=== PATIENT | female | born 1965 | race Caucasian/White ===

== ENCOUNTER 2016-11-27 15:41 | Inpatient (IN) | payer OTHER ==
[~2016-11-27] VITALS: Ht 167.6 cm; Wt 86.9 kg
[2016-11-27 16:36] LABS: HEMATOCRIT 35.4 % (36.0-46.0); MCH 28.5 PG (29.0-34.0); MCHC 34.7 G/DL (30.0-36.0); MCV 81.9 FL (83-99); MEAN PLAT.VOLUME 10.1 uM^3 (9.5-12.4); PLATELET COUNT 243 K/uL (156-360); RBC DIS.WIDTH-CV 13.6 % (11.8-14.6); RBC DIS.WIDTH-SD 40.9 % (39-53); RED BLOOD COUNT 4.32 M/uL (3.80-5.20); WHITE BLOOD COUNT 16.9 K/uL (4.1-10.2)
[2016-11-27 16:46] LABS: CHLORIDE 99 mEq/L (99-109); POTASSIUM 2.7 mEq/L (3.7-5.4); SODIUM 136 mEq/L (136-147)
[2016-11-27 16:47] LABS: GLUCOSE 114 mg/dL (70-99)
[2016-11-27 16:49] LABS: ANION GAP 18 MEQ/L (2-14)
[2016-11-27 16:52] LABS: GFR ESTIMATE (CALCULATED) 9 mL/min/; UREA NITROGEN (BUN) 78 mg/dL (9-23)
[2016-11-27 16:54] LABS: TROP-I INTERPRETATION NEGATIVE; TROPONIN-I < 0.01 ng/mL (0.0-0.30)
[2016-11-27] MEDS ORDERED: ALLEGRA-D 241 TABLET PO (17:21)
[2016-11-27] MEDS ORDERED: DELTASONE20 M1 PO (17:21)
[2016-11-27] MEDS ORDERED: MAALOX ADVANCE355 ML PO (17:22)
[2016-11-27] MEDS ORDERED: NASACORT10.8 ML BOTH NARES (17:22)
[2016-11-27 18:06] LABS: MAGNESIUM 2.1 mg/dL (1.3-2.7)
[2016-11-27 18:23] LABS: BASE EXCESS -4.4 mEq/L (-3 to +3); BICARBONATE 17.5 mEq/L (22-26); CARBOXY HGB 1.1 % (0-5); COMMENTS - BLOOD GASES A+C+; DEVICE NC; METHEMOGLOBIN 1.2 % (0-1.5); O2 FLOW 2 L/MIN; PCO2 23 mm Hg (35-45); PO2 68 mm Hg (80-100); SITE LR; TOTAL RESP RATE 20 resp/min; pH 7.49 (7.35-7.45)
[2016-11-27 19:08] LABS: ERTH.SED.RATE 94 MM/HR (0-30)
[2016-11-27 19:35] VITALS: BP 170/80
[2016-11-27 20:00] LABS: C-REACTIVE PROTEIN > 240.0 MG/L (0-10)
[2016-11-27 20:26] LABS: ALKALINE PHOSPHATASE 164 IU/L (3-129); ANION GAP 13 MEQ/L (2-14); CHLORIDE 99 MEQ/L (99-109); GFR ESTIMATE (CALCULATED) 10 mL/min/; GLUCOSE 125 mg/dL (70-99); POTASSIUM 2.7 MEQ/L (3.7-5.4); SAMPLE HEMOLYSIS CHECK 0; SAMPLE ICTERIC CHECK 0; SAMPLE LIPEMIA CHECK 0; SODIUM 132 MEQ/L (136-147); TOTAL BILIRUBIN 0.9 MG/DL (0.0-1.0); UREA NITROGEN (BUN) 75 mg/dL (9-23)
[2016-11-27 22:45] VITALS: BP 140/76
[2016-11-28 02:49] LABS: CHLORIDE 108 mEq/L (99-109); SODIUM 137 mEq/L (136-147)
[2016-11-28 02:52] LABS: GLUCOSE 125 mg/dL (70-99)
[2016-11-28 02:53] LABS: ANION GAP 12 MEQ/L (2-14)
[2016-11-28 02:55] LABS: ALKALINE PHOSPHATASE 182 IU/L (3-129); GFR ESTIMATE (CALCULATED) 12 mL/min/
[2016-11-28 02:56] LABS: UREA NITROGEN (BUN) 69 mg/dL (9-23)
[2016-11-28 02:59] LABS: POTASSIUM 3.5 mEq/L (3.7-5.4)
[2016-11-28 03:55] VITALS: BP 144/76
[2016-11-28 07:38] VITALS: BP 147/72
[2016-11-28 11:47] VITALS: BP 142/70
[2016-11-28 12:42] LABS: ADD MIUA? YES; BILIRUBIN NEGATIVE; BLOOD SMALL; COLOR YELLOW ((YELLOW)); GLUCOSE (STRIP) NEGATIVE; KETONES NEGATIVE; LEUKOCYTES TRACE; NITRITE NEGATIVE; PROTEIN (STRIP) NEGATIVE; UROBILINOGEN 0.2 MG/DL (0.2-1.0)
[2016-11-28 13:00] LABS: BACTERIA RARE /HPF; CELLULAR CASTS 0-5 /LPF; EPITHELIAL CELLS 1+ /HPF; MUCUS TRACE /LPF; RED BLOOD CELLS 0-5 /HPF (0-5); UCUL ADDED? NO; WHITE BLOOD CELLS CLUMP RARE /HPF (0-5)
[2016-11-28 13:15] LABS: ANION GAP 13 MEQ/L (2-14); CHLORIDE 107 MEQ/L (99-109); POTASSIUM 3.6 MEQ/L (3.7-5.4); SAMPLE HEMOLYSIS CHECK 0; SAMPLE ICTERIC CHECK 0; SAMPLE LIPEMIA CHECK 0; SODIUM 138 MEQ/L (136-147); UREA NITROGEN (BUN) 56 mg/dL (9-23)
[2016-11-28 13:16] LABS: GFR ESTIMATE (CALCULATED) 16 mL/min/; GLUCOSE 93 mg/dL (70-99)
[2016-11-28 15:40] VITALS: BP 146/73
[2016-11-28 18:54] VITALS: BP 154/74
[2016-11-28 22:37] VITALS: BP 153/82
[2016-11-29 03:50] VITALS: BP 180/81
[2016-11-29 07:02] LABS: HEMATOCRIT 29.8 % (36.0-46.0); MCH 28.4 PG (29.0-34.0); MCHC 33.6 G/DL (30.0-36.0); MCV 84.7 FL (83-99); MEAN PLAT.VOLUME 10.2 uM^3 (9.5-12.4); PLATELET COUNT 184 K/uL (156-360); RBC DIS.WIDTH-CV 14.2 % (11.8-14.6); RBC DIS.WIDTH-SD 43.9 % (39-53); RED BLOOD COUNT 3.52 M/uL (3.80-5.20); WHITE BLOOD COUNT 9.6 K/uL (4.1-10.2)
[2016-11-29 07:03] VITALS: BP 153/72
[2016-11-29 07:15] LABS: ALKALINE PHOSPHATASE 163 IU/L (3-129); ANION GAP 10 MEQ/L (2-14); CHLORIDE 109 MEQ/L (99-109); DIRECT BILIRUBIN 0.3 mg/dL (0.0-0.3); GFR ESTIMATE (CALCULATED) 22 mL/min/; GLUCOSE 86 mg/dL (70-99); POTASSIUM 3.7 MEQ/L (3.7-5.4); SAMPLE HEMOLYSIS CHECK 0; SAMPLE ICTERIC CHECK 0; SAMPLE LIPEMIA CHECK 0; SODIUM 141 MEQ/L (136-147); UREA NITROGEN (BUN) 42 mg/dL (9-23)
[2016-11-29 07:59] LABS: ABS NEUTROPHIL COUNT 8.1; BAND NEUTROPHILS 5.2 % (0-8.0); EOSINOPHIL ABS CT 0.3; EOSINOPHILS 3.5 % (0-5.0); HEMATOLOGY COMMENT 1 SN; LYMPHOCYTES 6.1 % (15.0-45.0); METAMYELOCYTES 4.3 %; MYELOCYTES 0.9 %; PLAT.SUFFICIENCY ADEQUATE; POIKILOCYTOSIS 1+; SEG.NEUTROPHILS 79.1 % (46.0-76.0)
[2016-11-29 08:12] LABS: INTERNAL CONTROL VALID? YES
[2016-11-29 13:32] LABS: ADD MIUA? YES; BILIRUBIN NEGATIVE; BLOOD SMALL; COLOR YELLOW ((YELLOW)); GLUCOSE (STRIP) NEGATIVE; KETONES NEGATIVE; LEUKOCYTES NEGATIVE; NITRITE NEGATIVE; PROTEIN (STRIP) NEGATIVE; SPECIFIC GRAVITY 1.011 (1.000-1.030); UROBILINOGEN 0.2 MG/DL (0.2-1.0)
[2016-11-29 14:01] LABS: BACTERIA 1+ /HPF; CALCIUM OXALATE CRYSTALS 1+ /HPF; EPITHELIAL CELLS RARE /HPF; MUCUS TRACE /LPF; RED BLOOD CELLS 0-5 /HPF (0-5)
[2016-11-29 15:39] VITALS: BP 166/80
[2016-11-29 20:18] VITALS: BP 148/74
[2016-11-30 00:45] VITALS: BP 167/76
[2016-11-30 04:27] VITALS: BP 158/76
[2016-11-30 06:40] LABS: ANION GAP 13 MEQ/L (2-14); CHLORIDE 103 MEQ/L (99-109); GFR ESTIMATE (CALCULATED) 36 mL/min/; GLUCOSE 83 mg/dL (70-99); POTASSIUM 3.3 MEQ/L (3.7-5.4); SAMPLE HEMOLYSIS CHECK 0; SAMPLE ICTERIC CHECK 0; SAMPLE LIPEMIA CHECK 0; SODIUM 137 MEQ/L (136-147); UREA NITROGEN (BUN) 25 mg/dL (9-23)
[2016-11-30 08:08] VITALS: BP 163/80
[2016-11-30] MEDS ORDERED: LEVOFLOXACIN750 MG PO (11:35)
[2016-11-30] MEDS ORDERED: AMLODIPINE BESYL5 MG PO (11:35)
[2016-11-30 11:36] VITALS: BP 171/82
[2016-11-30] MEDS ORDERED: GUAIFENESIN WI120 M1 PO (11:36)
[2016-11-30] MEDS ORDERED: PANTOPRAZOLE SO40 MG PO (11:37)
[2016-11-30 12:22] VITALS: BP 147/78
[2016-11-30 17:01] LABS: MYELOPEROXIDASE ANTIBODY (MPO) <1.0 AI (<1.0); PROTEINASE-3 ANTIBODY+ <1.0 AI (<1.0)
== END 2016-11-30 14:47 | disposition home or self-care (01) | DRG 871 ==
LOC: EME 15:41 → EDOF 17:38 → 5EAST 17:38
PROVIDERS: Internal Medicine; Internal Medicine Nephrology; Physician Assistant
DX: A41.9 Sepsis, unspecified organism (principal); A48.1 Legionnaires' disease; J96.01 Acute respiratory failure with hypoxia; N17.9 Acute kidney failure, unspecified; E86.0 Dehydration; E87.2 Acidosis; E87.6 Hypokalemia; I10 Essential (primary) hypertension; K21.9 Gastro-esophageal reflux disease without esophagitis; K44.9 Diaphragmatic hernia without obstruction or gangrene; Z77.22 Contact with and (suspected) exposure to environmental tobacco smoke (acute) (chronic)
CPT/HCPCS: 36600; 71020; 71250; 76770; 80048; 80048 91; 80053; 80069; 80076; 81003; 82803; 83520 90; 83605; 83735; 83930; 83935; 84300; 84484; 85025; 85027; 85651; 86021 90; 86140; 87040; 87449; 93005; 94799; 99281; 99285; J0456; J1644; J2543; J3480; J7030; J7050; J7120; S0028